=== PATIENT | female | born 1995 | race Caucasian/White ===

== ENCOUNTER → 2018-04-13 | Emergency (ER) | payer OTHER ==
[~2018-04-13] VITALS: Ht 160 cm; Wt 64.0 kg
[~2018-04-13] MED LIST: HYDROCODONE/APAP 5/325MG 1 EACH TABLET PO ONE; IBUPROFEN 600 MG TABLET PO ONE
[2018-04-13 14:29] VITALS: BP 132/84
== END | disposition home or self-care (01) ==
LOC: ER 14:20
DX: S63.502A Unspecified sprain of left wrist, initial encounter (principal); W08.XXXA Fall from other furniture, initial encounter; Y93.89 Activity, other specified; Y92.89 Other specified places as the place of occurrence of the external cause; Y99.8 Other external cause status
CPT/HCPCS: 29125; 73110; 73130; 99284; A4606; Z7610

== ENCOUNTER 2018-05-30 13:55 | Emergency (ER) | payer OTHER ==
[~2018-05-30] VITALS: Ht 160 cm; Wt 64.9 kg
[2018-05-30 13:55] VITALS: BP 125/73
== END 2018-05-30 14:25 | disposition home or self-care (01) ==
LOC: ER 13:59
DX: S50.361A Insect bite (nonvenomous) of right elbow, initial encounter (principal); W57.XXXA Bitten or stung by nonvenomous insect and other nonvenomous arthropods, initial encounter; Y93.89 Activity, other specified; Y92.89 Other specified places as the place of occurrence of the external cause; Y99.8 Other external cause status
CPT/HCPCS: 99283; A4606; Z7610

== ENCOUNTER 2019-11-30 23:21 | Emergency (ER) | payer OTHER, MEDICAID ==
[~2019-11-30] VITALS: Ht 160 cm; Wt 65.3 kg
--- NOTE | 2019-11-30 23:29 | NUR ---
SEEN AND EXAMINED BY
--- NOTE | 2019-11-30 23:30 | NUR ---
PATIENT CAME TO ER BED 3 C/O RIGHT ELBOW PAIN. PATIENT STATES THAT FRIDAY (11/27/2019), PATIENT HAD LIFTED A 5 GALLON WATER BOTTLE AND FELT INCREASING PAIN UNTIL TODAY. PATIENT HAD HX OF DISLOCATION ON ELBOW. AAOX4. NO SOB. BREATHING EVENLY AND UNLABORED ON ROOM AIR.
--- NOTE | 2019-11-30 23:41 | NUR ---
BLOOD DRAWN AND SENT TO LAB.
--- NOTE | 2019-11-30 23:46 | NUR ---
STEVEN CABRAL AT BEDSIDE FOR XRAY.
--- NOTE | 2019-11-30 23:51 | NUR ---
XRAY AT BEDSIDE.
[2019-11-30] MEDS ORDERED: VANCOMYCIN 1 GM VIAL ONE (23:54)
[2019-11-30 23:55] LABS: BASOPHILS # (AUTO) 0.1 /CMM (0.0-0.2); BASOPHILS % (AUTO) 0.5 % (0.0-2.0); EOSINOPHILS % (AUTO) 1.9 % (0.0-6.0); HEMATOCRIT 40 % (33-45); LYMPHOCYTES # (AUTO) 4.5 /CMM (0.8-4.8); LYMPHOCYTES % (AUTO) 41.5 % (20.0-44.0); MEAN CORPUSCULAR HGB CONC 33 g/dl (31.0-36.0); MEAN CORPUSCULAR VOLUME 81 fL (82-100); MONOCYTES # (AUTO) 0.7 /CMM (0.1-1.30); MONOCYTES % (AUTO) 6.8 % (2.0-12.0); NEUTROPHILS # (AUTO) 5.3 /CMM (1.8-8.9); NEUTROPHILS % (AUTO) 49.3 % (43.0-81.0); PLATELET COUNT (AUTO) 370 /CMM (150-450); RED BLOOD CELL COUNT(AUTO) 4.91 MIL/uL (4.0-5.2); WHITE BLOOD COUNT (AUTO) 10.8 K/uL (4.3-11.0)
[2019-12-01] MEDS ORDERED: VANCOMYCIN 1 GM in IV D5W 250 ML IV ONE ×2
[2019-12-01 00:02] LABS: CALCIUM, SERUM 9.4 mg/dL (8.5-10.1); CREATININE 0.7 mg/dL (0.6-1.3); POTASSIUM 3.6 mmol/L (3.5-5.1)
[2019-12-01 00:08] LABS: BILIRUBIN,TOTAL 0.3 mg/dL (0.2-1.0); TOTAL PROTEIN, SERUM 7.8 g/dL (6.4-8.2)
--- NOTE | 2019-12-01 00:22 | NUR ---
CALLED PETEY CLAYTON
--- NOTE | 2019-12-01 01:16 | NUR ---
IV removed. Catheter intact and site benign. Pressure and 4x4 applied to site. No bleeding noted. Patient discharged to home in stable condition. Written and verbal after care instructions given. Patient verbalizes understanding of instruction.
[2019-12-01 01:17] VITALS: BP 122/71
--- NOTE | 2019-12-01 01:20 | NUR ---
Patient discharged to home in stable condition. Written and verbal after care instructions given. Patient verbalizes understanding of instruction.
== END 2019-12-01 01:50 | disposition home or self-care (01) ==
LOC: ER 23:23
DX: L03.113 Cellulitis of right upper limb (principal); M00.821 Arthritis due to other bacteria, right elbow
CPT/HCPCS: 29105; 36415; 73080; 80048; 80076; 84702; 85025; 85730; 87040 ×2; 96365; 99284; J3370

== ENCOUNTER 2020-07-21 10:46 | Emergency (ER) | payer MEDICAID, OTHER ==
[~2020-07-21] VITALS: Ht 162.6 cm; Wt 54.4 kg
[2020-07-21 10:57] VITALS: BP 134/84
[2020-07-21] MEDS ORDERED: IBUPROFEN 600 MG TABLET PO ONE (11:30)
[2020-07-21] MEDS ORDERED: IBUPROFEN 600 MG TABLET ONE (12:01)
--- NOTE | 2020-07-22 22:47 | NUR ---
PT AWARE OF COVID RESULTS.
== END 2020-07-21 12:17 | disposition home or self-care (01) ==
LOC: ER 10:46
DX: U07.1 COVID-19 (principal)
CPT/HCPCS: 99283; C9803; U0003

== ENCOUNTER 2020-10-08 23:15 | Emergency (ER) | payer OTHER ==
[~2020-10-08] VITALS: Ht 160 cm; Wt 59.0 kg
[2020-10-08] MEDS: KETOROLAC TROMETHAMINE INJ 30 MG/ML VIAL IV ONE ×2 (00:59→23:59)
--- NOTE | 2020-10-08 23:50 | NUR ---
PATIENT CAME TO THE ER BED 9 C/O LEFT UPPER ABDOMINAL PAIN SINCE YESTERDAY NIGHT. PATIENT STATES THAT WHENEVER SHE PUTS PRESSUREEITHER BY STRAINING OR PALPATING THE LEFT UPPER QUADRANT OF THE ABDOMEN, SHE WILL FEEL RAZOR SHARP PAIN. PATIENT STATES THAT SHE IS ABLE TO HAVE BM AND URINATE WITH NO ISSUES. PATIENT IS AAOX4. NO SOB. BREATHING EVENLY AND UNLABORED ON ROOM AIR. CONNECTED TO THE MONITOR.
[2020-10-08] MEDS ORDERED: IOHEXOL-300 100 ML VIAL IV ONE (23:54)
[2020-10-08] MEDS ORDERED: IV NS 0.9% 250 ML IV ONE (23:54)
[2020-10-08] MEDS ORDERED: CT SWABBABLE VALVE TRANS SET 1 EA INFUS.SET MC ONE (23:54)
--- NOTE | 2020-10-08 23:54 | NUR ---
urine collected and sent to the lab.
[2020-10-08] MEDS ORDERED: KETOROLAC TROMETHAMINE 15 MG/ML VIAL ONE (23:55)
[2020-10-08 23:56] LABS: BASOPHILS % (AUTO) 0.5 % (0.0-2.0); EOSINOPHILS % (AUTO) 2.3 % (0.0-6.0); HEMATOCRIT 37 % (33-45); HEMOGLOBIN 12.1 g/dL (11.5-14.8); LYMPHOCYTES # (AUTO) 3.9 /CMM (0.8-4.8); LYMPHOCYTES % (AUTO) 46.8 % (20.0-44.0); MEAN CORPUSCULAR HGB CONC 33 g/dl (31.0-36.0); MEAN CORPUSCULAR VOLUME 81 fL (82-100); MONOCYTES # (AUTO) 0.6 /CMM (0.1-1.30); NEUTROPHILS # (AUTO) 3.6 /CMM (1.8-8.9); NEUTROPHILS % (AUTO) 43.4 % (43.0-81.0); PLATELET COUNT (AUTO) 320 /CMM (150-450); RED BLOOD CELL COUNT(AUTO) 4.52 MIL/uL (4.0-5.2); WHITE BLOOD COUNT (AUTO) 8.3 K/uL (4.3-11.0)
[2020-10-09 00:16] LABS: CALCIUM, SERUM 9.1 mg/dL (8.5-10.1); CREATININE 0.7 mg/dL (0.6-1.3); POTASSIUM 3.5 mmol/L (3.5-5.1)
[2020-10-09 00:21] LABS: ALBUMIN 3.8 g/dL (3.4-5.0); BILIRUBIN,DIRECT 0.1 mg/dL (0.0-0.2); BILIRUBIN,TOTAL 0.2 mg/dL (0.2-1.0); TOTAL PROTEIN, SERUM 7.6 g/dL (6.4-8.2)
--- NOTE | 2020-10-09 00:25 | NUR ---
PATIENT TO CT.
--- NOTE | 2020-10-09 00:35 | NUR ---
RETURNED FROM CT.
[2020-10-09 00:55] LABS: BILIRUBIN,URINE NEGATIVE (NEGATIVE); COLOR,URINE YELLOW (YELLOW); LEUKOCYTE ESTERASE ,URINE NEGATIVE (NEGATIVE); NITRITE, URINE NEGATIVE (NEGATIVE); PH,URINE 5.5 (5.0-8.0); PROTEIN,URINE NEGATIVE (NEGATIVE); UGLUCOSE NEGATIVE (NEGATIVE); UROBILINOGEN,URINE 0.2 EU/dL (0.2)
[2020-10-09 00:57] LABS: BACTERIA,URINE None seen /HPF (None Seen); RBC,URINE 0-2 /HPF (0-2); SQUAMOUS EPITHELIAL CELL,UR Few /HPF (None Seen); WBC,URINE 0-2 /HPF (0-3)
[2020-10-09] MEDS ORDERED: KETOROLAC TROMETHAMINE INJ 30 MG/ML VIAL IV ONE (01:30)
[2020-10-09] MEDS ORDERED: FAMOTIDINE/PF INJ 20 MG/2 ML VIAL IV ONE ×2 (01:30→01:51)
[2020-10-09] MEDS ORDERED: KETOROLAC TROMETHAMINE 15 MG/ML VIAL ONE (01:51)
[2020-10-09] MEDS ORDERED: NAPR-1164 PO (02:12)
[2020-10-09 02:25] VITALS: BP 122/75
== END 2020-10-09 02:25 | disposition home or self-care (01) ==
LOC: ER 23:16
DX: R10.12 Left upper quadrant pain (principal); Z79.899 Other long term (current) drug therapy
CPT/HCPCS: 36415; 74177; 80048; 80076; 81001; 83605; 83690; 84703; 85025; 85730; 96374; 96376; 99285; J1885 ×2; J7050; Q9967; J3490

== ENCOUNTER 2020-10-23 04:20 | Emergency (ER) | payer OTHER ==
[~2020-10-23] VITALS: Ht 160 cm; Wt 68.0 kg
[~2020-10-23 04:20] MED LIST changes: -HYDROCODONE/APAP 5/325MG 1 EACH TABLET PO ONE; -IBUPROFEN 600 MG TABLET PO ONE; +NAPR-1164 PO
--- NOTE | 2020-10-23 04:31 | NUR ---
BIBS FOR C.O N/A AND UPPER ABDOMINAL DISCOMFROT SINCE MIDNIGHT W/ 4 EPISODE OF NON BLOODY VOMITING. -DIARRHEA. PT AMBULATORY TO BED 4. WS PLACED ON A MONITOR . VSS, WILL CONT TO MONITOR
[2020-10-23] MEDS ORDERED: ONDANSETRON HCL/PF 4 MG/2 ML VIAL ONE (04:35)
[2020-10-23 04:54] LABS: BASOPHILS % (AUTO) 0.1 % (0.0-2.0); EOSINOPHILS % (AUTO) 0.7 % (0.0-6.0); HEMATOCRIT 41 % (33-45); HEMOGLOBIN 13.3 g/dL (11.5-14.8); LYMPHOCYTES # (AUTO) 1.5 /CMM (0.8-4.8); LYMPHOCYTES % (AUTO) 12.1 % (20.0-44.0); MEAN CORPUSCULAR HGB CONC 33 g/dl (31.0-36.0); MEAN CORPUSCULAR VOLUME 81 fL (82-100); MONOCYTES # (AUTO) 0.7 /CMM (0.1-1.30); MONOCYTES % (AUTO) 6.1 % (2.0-12.0); NEUTROPHILS # (AUTO) 9.8 /CMM (1.8-8.9); PLATELET COUNT (AUTO) 331 /CMM (150-450); RED BLOOD CELL COUNT(AUTO) 5.05 MIL/uL (4.0-5.2); WHITE BLOOD COUNT (AUTO) 12.1 K/uL (4.3-11.0)
--- NOTE | 2020-10-23 04:54 | NUR ---
pt unable to provide urine sample at this time. will f/u
[2020-10-23] MEDS ORDERED: ONDANSETRON HCL/PF 4 MG/2 ML VIAL IVP ONE (05:00)
[2020-10-23] MEDS ORDERED: IV NS 0.9% 1,000 ML BAG IV ONE (05:00)
[2020-10-23 05:06] LABS: ALBUMIN 4.2 g/dL (3.4-5.0); BILIRUBIN,DIRECT 0.1 mg/dL (0.0-0.2); BILIRUBIN,TOTAL 0.5 mg/dL (0.2-1.0); CALCIUM, SERUM 9.2 mg/dL (8.5-10.1); CREATININE 0.8 mg/dL (0.6-1.3); POTASSIUM 3.4 mmol/L (3.5-5.1); TOTAL PROTEIN, SERUM 8.1 g/dL (6.4-8.2)
--- NOTE | 2020-10-23 05:22 | NUR ---
us tech at bed side
--- NOTE | 2020-10-23 05:47 | NUR ---
Dr Baires at bed side
[2020-10-23] MEDS ORDERED: ONDA4TAB11 PO (05:53)
[2020-10-23 06:32] LABS: BILIRUBIN,URINE NEGATIVE (NEGATIVE); COLOR,URINE YELLOW (YELLOW); LEUKOCYTE ESTERASE ,URINE NEGATIVE (NEGATIVE); NITRITE, URINE NEGATIVE (NEGATIVE); PROTEIN,URINE NEGATIVE (NEGATIVE); UGLUCOSE NEGATIVE (NEGATIVE); UROBILINOGEN,URINE 0.2 EU/dL (0.2)
[2020-10-23 06:50] VITALS: BP 112/68
--- NOTE | 2020-10-23 06:50 | NUR ---
pt is medically stable for D/C per MD. IV removed. Catheter intact and site benign. Pressure and 4x4 applied to site. No bleeding noted.Patient discharged to home in stable condition. Rx and Written and verbal after care instructions given. Patient verbalizes understanding of instruction.
[2020-10-23 07:00] LABS: BACTERIA,URINE None seen /HPF (None Seen); RBC,URINE 21-50 /HPF (0-2); SQUAMOUS EPITHELIAL CELL,UR Few /HPF (None Seen); WBC,URINE 0-2 /HPF (0-3)
== END 2020-10-23 06:51 | disposition home or self-care (01) ==
LOC: ER 04:22
DX: K29.70 Gastritis, unspecified, without bleeding (principal); Z79.899 Other long term (current) drug therapy
CPT/HCPCS: 36415; 76705; 80048; 80076; 81001; 83690; 84703; 85025; 96361; 96374; 99284; J2405; J7030

== ENCOUNTER 2024-01-07 12:42 | Emergency (ER) | payer OTHER ==
[~2024-01-07] VITALS: Ht 160 cm; Wt 64.0 kg
[~2024-01-07 12:42] MED LIST changes: +ONDA4TAB11 PO
[2024-01-07 12:52] VITALS: BP 149/96; TEMP 208.4; O2SAT 98
[2024-01-07] MEDS ORDERED: IBUP-1955 PO (14:23)
== END 2024-01-07 14:46 | disposition home or self-care (01) ==
LOC: ER 12:46
DX: S00.511A Abrasion of lip, initial encounter (principal); S09.8XXA Other specified injuries of head, initial encounter; R07.89 Other chest pain; R04.0 Epistaxis; Z87.39 Personal history of other diseases of the musculoskeletal system and connective tissue; W01.198A Fall on same level from slipping, tripping and stumbling with subsequent striking against other object, initial encounter; Y93.89 Activity, other specified; Y92.89 Other specified places as the place of occurrence of the external cause; Y99.8 Other external cause status
CPT/HCPCS: 71045-TC

== ENCOUNTER 2024-04-02 16:38 | Emergency (ER) | payer OTHER ==
[~2024-04-02] VITALS: Ht 162.6 cm; Wt 68.9 kg
[~2024-04-02 16:38] MED LIST changes: +IBUP-1955 PO
[2024-04-02 17:14] VITALS: TEMP 97.9
[2024-04-02] MEDS ORDERED: ACETAMINOPHEN ES 500 MG TABLET ONE (17:52)
[2024-04-02] MEDS ORDERED: CYCLOBENZAPRINE 10 MG TABLET ONE (17:53)
[2024-04-02] MEDS: CYCLOBENZAPRINE 10 MG TABLET PO ONE (17:56)
[2024-04-02] MEDS: ACETAMINOPHEN ES 500 MG TABLET PO ONE (17:57)
[2024-04-02] MEDS ORDERED: CYCL5TAB PO (18:11)
[2024-04-02 18:38] VITALS: BP 122/78; O2SAT 98
== END 2024-04-02 18:38 | disposition home or self-care (01) ==
LOC: ER 16:48
DX: M25.562 Pain in left knee (principal); Z79.1 Long term (current) use of non-steroidal anti-inflammatories (NSAID); Z79.899 Other long term (current) drug therapy
CPT/HCPCS: 73564-TC

== ENCOUNTER 2024-09-16 09:50 | Emergency (ER) | payer OTHER ==
[~2024-09-16] VITALS: Ht 160 cm; Wt 68.5 kg
[~2024-09-16 09:50] MED LIST changes: +CYCL5TAB PO
[2024-09-16 10:01] VITALS: BP 130/80; TEMP 98.6; O2SAT 96
[2024-09-16] MEDS ORDERED: ACETAMINOPHEN ES 500 MG TABLET ONE (11:22)
[2024-09-16] MEDS: ACETAMINOPHEN 325 MG TABLET PO ONE (11:39)
== END 2024-09-16 12:30 | disposition home or self-care (01) ==
LOC: ER 09:53
DX: J02.9 Acute pharyngitis, unspecified (principal); H92.03 Otalgia, bilateral; R53.1 Weakness; Z20.822 Contact with and (suspected) exposure to COVID-19
CPT/HCPCS: 86403-TC; 87070-TC